=== PATIENT | female | born 1955 | race Caucasian/White ===

== ENCOUNTER 2016-12-20 20:32 | Emergency (ER) | payer OTHER ==
[~2016-12-20] VITALS: Ht 167.6 cm; Wt 89.8 kg
[2016-12-20] MEDS ORDERED: IPRATRPIUM/ALBUTEROL 0.5/2.5MG 3 ML NEBU. NEB ONE (21:45)
[2016-12-20 22:15] VITALS: BP 149/86
[2016-12-20] MEDS ORDERED: PROAIR HFA8.5 GM INH (22:36)
--- NOTE | 2016-12-20 22:36 | PHYS DOC ---
Past Medical History Past Medical History: GERD, Hypertension, Sciatica Additional Past Medical Histor: Crohn's, allergic asthma Past Surgical History: Hysterectomy, Tonsillectomy, Other Additional Past Surgical Histo: endoscopy, umbilical hernia, rectocele Alcohol Use: Occasionally Drug Use: None Adult General Chief Complaint Chief Complaint: Congestion HPI HPI Patient is a 61 year old female who presents with approx 2 weeks of cough with white sputum, dyspnea that improves with albuterol use, wheezing, initially with rhinorrhea and nasal congestion because are improving, and did have chills and sweats. [facility] grandchildren and have similar symptoms. [facility] she was seen recently by outside emergency department and diagnosed with pneumonia; she was prescribed prednisone, doxycycline, and albuterol inhaler. She is here because her symptoms persist. She denies hemoptysis, leg pain or swelling, palpitations, diaphoresis, orthopnea, exertional symptoms. Review of Systems Review of Systems Constitutional: Denies fever [] Eyes: Denies change in visual acuity, redness, or eye pain [] HENT: Denies nasal congestion or sore throat [] Respiratory: Denies shortness of breath [] Cardiovascular: No additional information not addressed in HPI [] GI: Denies abdominal pain, nausea, vomiting, bloody stools or diarrhea [] : Denies dysuria or hematuria [] Musculoskeletal: Denies back pain or joint pain [] Integument: Denies rash or skin lesions [] Neurologic: Denies headache, focal weakness or sensory changes [] Endocrine: Denies polyuria or polydipsia [] Current Medications Current Medications Current Medications Medications (Trade) Dose Ordered Sig/Gregoria Start Time Stop Time Status Last Admin Dose Admin Albuterol/ Ipratropium (Duoneb) 3 ml 1X ONCE 12/20/16 21:45 12/20/16 21:46 DC 12/20/16 21:44 3 ML Allergies Allergies Allergies Coded Allergies Type Severity Reaction Last Updated Verified nitrofurantoin Allergy Intermediate Unknown 12/20/16 Yes sulfamethoxazole Allergy Intermediate Rash 12/20/16 Yes trimethoprim Allergy Intermediate Rash 12/20/16 Yes Physical Exam Physical Exam Constitutional: Well developed, well nourished, no acute distress, non-toxic appearance. [] HENT: Normocephalic, atraumatic, bilateral external ears normal, oropharynx moist, no oral exudates, nose normal. [] Eyes: PERRLA, EOMI, conjunctiva normal, no discharge. [] Neck: Normal range of motion, no tenderness, supple, no stridor. [] Cardiovascular:Heart rate regular rhythm [] Lungs & Thorax: Moderate bilateral wheezing, normal respiratory effort, speaking in full sentences, no crackles [] Abdomen: Bowel sounds normal, soft, no tenderness. [] Skin: Warm, dry, no erythema, no rash. [] Back: Normal range of motion. [] Extremities: No tenderness, ROM intact, no edema. [] Neurologic: Alert and oriented X 3, normal motor function, normal sensory function, no focal deficits noted. [] Psychologic: Affect normal, judgement normal, mood normal. [] Current Patient Data Vital Signs Vital Signs Date Time Temp Pulse Resp B/P Pulse Ox O2 Delivery O2 Flow Rate FiO2 12/20/16 22:15 89 20 149/86 97 Room Air 12/20/16 20:47 98.2 98.2 Radiology/Procedures Radiology/Procedures Chest xray as interpreted by me with no acute cardiopulmonary disease process Course & Med Decision Making Course & Med Decision Making Pertinent Labs and Imaging studies reviewed. (See chart for details) She feels better after neb here. Lungs are clear to auscultation bilaterally with normal respiratory effort. Discussed her symptoms are likely viral in nature as opposed to true pneumonia. Discussed symptomatic care and provided spacer for albuterol inhaler. Encouraged close follow-up with primary care. Return precautions given. She and understand and agree with plan. Dragon Disclaimer Dragon Disclaimer This electronic medical record was generated, in whole or in part, using a voice recognition dictation system. Departure Departure Impression: Primary Impression: Upper respiratory infection Additional Impression: Wheezing Disposition: 01 HOME, SELF-CARE Condition: STABLE Referrals: GABBY MAHMOOD (PCP) Patient Instructions: Asthma, Adult, [id number] Additional Instructions: Use albuterol inhaler as needed for cough. You can also take honey as needed for cough. Follow-up with your primary care doctor. Return for any concerns. Scripts Albuterol Sulfate (Proair Hfa Inhaler)8.5 Gm Hfa.[id number].ad2 Puff INH Q4HRS PRN SHORTNESS OF BREATH #1 INHALER Prov:Radha DICKINSON MD 12/20/16 Problem Qualifiers Primary Impression: Upper respiratory infection URI type: unspecified viral URI Qualified Code: J06.9 - Acute upper respiratory infection, unspecified Radha DICKINSON MD Dec 20, 2016 22:36
--- NOTE | 2016-12-21 07:31 | RAD ---
Exam: PA and lateral chest radiograph History: Cough and asthma, possible right pneumonia. Comparison: None. Findings: Cardiomediastinal silhouette is within normal limits for size. Bilateral lung boogie are free of focal infiltrate. No pleural effusion is seen. Impression: No acute cardiopulmonary process.
== END 2016-12-20 22:54 | disposition home or self-care (01) ==
LOC: ER 20:32
DX: J06.9 Acute upper respiratory infection, unspecified (principal); J45.909 Unspecified asthma, uncomplicated; K21.9 Gastro-esophageal reflux disease without esophagitis; I10 Essential (primary) hypertension; Z88.2 Allergy status to sulfonamides; Z88.1 Allergy status to other antibiotic agents; Z88.8 Allergy status to other drugs, medicaments and biological substances; Z79.899 Other long term (current) drug therapy
CPT/HCPCS: 71020; 94640; 99284; J7620